=== PATIENT | male | born 1995 | race African-American/Black ===

== ENCOUNTER 2019-07-05 20:33 | Emergency (ER) | payer BC, OTHER ==
[~2019-07-05] VITALS: Ht 190.5 cm; Wt 104.3 kg
--- NOTE | 2019-07-05 20:59 | Emergency Room Report ---
History of Present Illness General Chief Complaint: Dizziness Source: Patient Present Illness [facility] This is a 23-year-old male with no past medical history. He presents with chief complaint of dizziness. Onset for about a week. He said to get it frequently. He said he felt like the room spinning all the time. He said to get every 10 seconds. Somehow was able to drive here without any difficulty. No fever chills but no nausea no vomiting. He said he gets full very easily. Denies any weight loss. No family history of diabetes. Also with chief complaint of lower back pain. This been ongoing for last few days. He said he has to wear heavy belt at work. Is pushing on his lower back and causing pain. No incontinence of bowel or urine. No trauma. No weight loss. No fever chills. Allergies: Coded Allergies: No Known Allergies (Unverified , 07/05/19) Patient History Past Medical History: see triage record, old chart reviewed Past Surgical History: none Pertinent Family History: none Social History: Denies: smoking Immunizations: other Reviewed Nursing Documentation: PMH: Agreed; PSxH: Agreed Nursing Documentation-PMH Past Medical History: No Stated History Review of Systems Eye: Denies: eye pain, blurred vision ENT: Denies: ear pain, nose congestion, throat swelling Respiratory: Denies: cough, shortness of breath Cardiovascular: Denies: chest pain, palpitations Gastrointestinal: Denies: abdominal pain, diarrhea, nausea, vomiting Musculoskeletal: Denies: back pain, joint pain Skin: Denies: rash Neurological: Reports: dizziness; Denies: headache, numbness Endocrine: Denies: increased thirst, increased urine Hematologic/Lymphatic: Denies: easy bruising All Other Systems: negative except mentioned in HPI Physical Exam Vital Signs Date Time Temp Pulse Resp B/P (MAP) Pulse Ox O2 Delivery O2 Flow Rate FiO2 07/05/19 20:46 98.6 85 18 101/68 (79) 96 Room Air Vitals normal Sp02 EP Interpretation: reviewed, normal General Appearance: well appearing, no apparent distress, alert Head: normocephalic, atraumatic Eyes: bilateral eye PERRL, bilateral eye EOMI ENT: hearing grossly normal, normal pharynx Neck: full range of motion, supple, no meningismus Respiratory: chest non-tender, lungs clear, normal breath sounds Cardiovascular #1: regular rate, rhythm, no murmur Gastrointestinal: normal bowel sounds, non tender, no mass, no organomegaly, no bruit, non-distended Musculoskeletal: back normal, gait/station normal, normal range of motion Psychiatric: mood/affect normal Medical Decision Making Diagnostic Impression: Primary Impression: Dizziness of unknown cause Additional Impression: Low back pain Qualified Codes: M54.5 - Low back pain ER Course Patient with dizziness. I see no evidence of TIA or CVA. No neoplastic process. Labs unremarkable. Will discharge home. No evidence of cauda equina syndrome, spinal epidural abscess or neoplastic process. CT/MRI/US Diagnostic Results CT/MRI/US Diagnostic Results : Imaging Test Ordered: CT head Impression Negative per radiologist Last Vital Signs Date Time Temp Pulse Resp B/P (MAP) Pulse Ox O2 Delivery O2 Flow Rate FiO2 07/05/19 20:46 98.6 85 18 101/68 (79) 96 Room Air Status: improved Disposition: HOME, SELF-CARE Condition: Stable Scripts Meclizine Hcl* (MECLIZINE*) 25 Mg Tablet 25 MG ORAL THREE TIMES A DAY, #30 TAB Prov: Shaka Peng MD 07/05/19 Ibuprofen* (MOTRIN*) 600 Mg Tablet 600 MG ORAL THREE TIMES A DAY, #30 TAB 0 Refills Prov: Shaka Peng MD 07/05/19 Patient Instructions: Dizziness Additional Instructions: Follow-up with your doctor in 7 days. Return if worse. Shaka Peng MD Jul 05, 2019 20:59
--- NOTE | 2019-07-05 21:00 | NUR ---
ED Nurse Note: Patient walked in to ER c/o generalized weakness, dizziness, lower back pain. AAO x4, VSS at this time, skin is dry warm to touch.
[2019-07-05 21:13] VITALS: BP 101/68
[2019-07-05 21:53] LABS: APPEARANCE,URINE CLEAR; BILIRUBIN, URINE NEGATIVE (NEGATIVE); GLUCOSE, URINE (UA) NEGATIVE (NEGATIVE); KETONES,URINE NEGATIVE (NEGATIVE); LEUKOCYTE ESTERASE ,URINE NEGATIVE (NEGATIVE); NITRITE,URINE NEGATIVE (NEGATIVE); PH,URINE 5 (4.5-8.0); PROTEIN,URINE NEGATIVE (NEGATIVE); UROBILINOGEN,URINE NORMAL MG/DL (0.0-1.0)
[2019-07-05 21:55] LABS: COLOR,URINE YELLOW
[2019-07-05 21:58] LABS: BASOPHILS % (AUTO) 1.2 % (0.0-2.0); HEMATOCRIT 45.7 % (42.0-52.0); HEMOGLOBIN 15.6 G/DL (14.2-18.0); LYMPHOCYTES % (AUTO) 33.2 % (20.0-45.0); MEAN CORPUSCULAR VOLUME 93 FL (80-99); MONOCYTES % (AUTO) 7.2 % (1.0-10.0); NEUTROPHILS % (AUTO) 56.4 % (45.0-75.0); PLATELET COUNT 331 K/UL (150-450); RED BLOOD COUNT 4.92 M/UL (4.70-6.10); RED CELL DISTRIBUTION WIDTH 10.6 % (11.6-14.8)
[2019-07-05 22:00] LABS: ANION GAP 12 mmol/L (5-15); BLOOD UREA NITROGEN 10 mg/dL (7-18); CALCIUM 9.7 MG/DL (8.5-10.1); CARBON DIOXIDE 28 MMOL/L (21-32); CHLORIDE 104 MMOL/L (98-107); CREATININE 1.1 MG/DL (0.55-1.30); POTASSIUM 3.6 MMOL/L (3.5-5.1); SODIUM 144 MMOL/L (136-145)
[2019-07-05] MEDS ORDERED: MECLIZINE HCL25 MG ORAL (22:40)
[2019-07-05] MEDS ORDERED: IBUPROFEN600 MG ORAL (22:40)
[2019-07-05 22:45] VITALS: BP 101/68
--- NOTE | 2019-07-05 22:46 | NUR ---
ER DISCHARGE NOTE: Patient is cleared to be discharged per ERMD, pt is aox4, on room air, with stable vital signs. pt was given dc and prescription instructions, pt was able to verbalize understanding, pt id band and iv site removed without complications. pt is able to ambulate with steady gait. pt took all belongings.
--- NOTE | 2019-07-06 10:45 | Diagnostic Imaging Report ---
Indications: Vertigo Technique: Spiral acquisitions obtained through the brain. Angled axial and coronal 5 x 5 mm slices were reconstructed. Total dose length product 1424.81 mGycm. CTDI vol(s) 70.38 mGy. Dose reduction achieved using automated exposure control Comparison: None. Findings: No acute intracranial hemorrhage or edema, mass effect, nor midline shift. Normal maguire-white differentiation. Normal size ventricles and extra axial CSF spaces. There is minimal right-sided ethmoid sinus mucosal disease. The visualized orbits are unremarkable. The mastoids are clear. Impression: No acute process Minimal sinus disease This agrees with the preliminary interpretation provided overnight by [facility] teleradiology service. The CT scanner at [facility] is accredited by the [employer] and the scans are performed using protocols designed to limit radiation exposure to as low as reasonably achievable to attain images of sufficient resolution adequate for diagnostic evaluation.
== END 2019-07-05 22:52 | disposition home or self-care (01) ==
LOC: EMR 21:24
DX: R42 Dizziness and giddiness (principal); M54.5 Low back pain
CPT/HCPCS: 36415; 70450; 80048; 81001; 85025; 99284

== ENCOUNTER 2019-08-25 23:36 | Emergency (ER) | payer OTHER, MEDICAID ==
[~2019-08-25] VITALS: Ht 190.5 cm; Wt 108.9 kg
[~2019-08-25 23:36] MED LIST: IBUPROFEN600 MG ORAL; MECLIZINE HCL25 MG ORAL
[2019-08-26] VITALS: BP 110/52
--- NOTE | 2019-08-26 | NUR ---
ED Nurse Note: Patient walked in to ER due to sore throat, dizziness, chill for a few days. Patient is congested. Pt taken OTC theraflu medication @1900 yesterday. Temp 100.9 at ER. Alert, oriented, verbally responisve. no SOB. Breathing even and ulabored. No stated medical history. VSS.
--- NOTE | 2019-08-26 00:50 | Emergency Room Report ---
History of Present Illness General Chief Complaint: Fever Source: Patient Present Illness HPI Disclaimer: Please note that this report is being documented using [employer] technology. This can lead to erroneous entry secondary to incorrect interpretation by the dictating instrument. HPI: 23-year-old male with no reported medical history presents for evaluation of sore throat and fever. Symptoms are present approximately 2 days. He notes a initial sore throat, fatigue, sweats and chills. Denies cough. Noted some loose stools throughout the day and nausea but denies vomiting. No rash. Did not receive a flu shot this year. Overall, feels rundown and sick. PMH: Denies PSH: Denies Allergies: Denies Social Hx: Denies Allergies: Coded Allergies: No Known Allergies (Unverified , 07/05/19) Nursing Documentation-PMH Past Medical History: No Stated History Review of Systems All Other Systems: negative except mentioned in HPI Physical Exam Vital Signs Date Time Temp Pulse Resp B/P (MAP) Pulse Ox O2 Delivery O2 Flow Rate FiO2 08/25/19 23:53 102.7 124 16 106/49 (68) 95 Room Air General: Awake and alert, febrile, appears uncomfortable HEENT: NC/AT. EOMI. PERRLA. Uvula midline. Tonsils 2+. Erythematous pharynx with no exudate. Neck: Supple, trachea midline, no lymphadenopathy Chest Wall: No tenderness, no deformity Cardiovascular: Tachycardic. S1 and S2 normal. No murmur appreciated Resp: Normal work of breathing. No cough, wheezing or crackles appreciated Abdomen: Abdomen is soft, nondistended. Nontender Skin: Intact. No abrasions, laceration or rash over the exposed skin MSK: Normal tone and bulk. Moving all extremities. No obvious deformity. Neuro: Awake and alert. Mentating appropriately. Medical Decision Making Diagnostic Impression: Primary Impression: Febrile illness Additional Impression: Upper respiratory infection ER Course This is a 23-year-old male presenting for evaluation of 2 days URI symptoms as well as diarrhea. Differential includes was not limited to influenza, other viral illness, pneumonia, bronchitis. Patient is tachycardic and febrile. Will give IV fluids, antipyretics, check screening labs and a chest x-ray. If he improves he can go home otherwise may be requiring admission Laboratory Tests Test 08/26/19 00:53 White Blood Count 16.1 K/UL (4.8-10.8) H Red Blood Count 4.79 M/UL (4.70-6.10) Hemoglobin 15.4 G/DL (14.2-18.0) Hematocrit 44.1 % (42.0-52.0) Mean Corpuscular Volume 92 FL (80-99) Mean Corpuscular Hemoglobin 32.2 PG (27.0-31.0) H Mean Corpuscular Hemoglobin Concent 35.0 G/DL (32.0-36.0) Red Cell Distribution Width 10.4 % (11.6-14.8) L Platelet Count 275 K/UL (150-450) Mean Platelet Volume 7.1 FL (6.5-10.1) Neutrophils (%) (Auto) % (45.0-75.0) Lymphocytes (%) (Auto) % (20.0-45.0) Monocytes (%) (Auto) % (1.0-10.0) Eosinophils (%) (Auto) % (0.0-3.0) Basophils (%) (Auto) % (0.0-2.0) Sodium Level 138 MMOL/L (136-145) Potassium Level 3.7 MMOL/L (3.5-5.1) Chloride Level 101 MMOL/L (98-107) Carbon Dioxide Level 27 MMOL/L (21-32) Anion Gap 10 mmol/L (5-15) Blood Urea Nitrogen 15 mg/dL (7-18) Creatinine 1.2 MG/DL (0.55-1.30) Estimate Glomerular Filtration Rate > 60 mL/min (>60) Glucose Level 102 MG/DL (74-106) Calcium Level 9.8 MG/DL (8.5-10.1) Total Bilirubin 0.5 MG/DL (0.2-1.0) Aspartate Amino Transferase (AST) 37 U/L (15-37) Alanine Aminotransferase (ALT) 60 U/L (12-78) Alkaline Phosphatase 67 U/L (46-116) Total Protein 8.6 G/DL (6.4-8.2) H Albumin 4.5 G/DL (3.4-5.0) Globulin 4.1 g/dL Albumin/Globulin Ratio 1.1 (1.0-2.7) Microbiology Date/Time Source Procedure Growth Status 08/26/19 01:08 Nose - Final Complete 08/26/19 01:08 Nose - Final Complete Chest X-Ray Diagnostic Results Chest X-Ray Diagnostic Results : Chest X-Ray Ordered: Yes Indication: Shortness of Breath EP Interpretation: Yes Interpretation: no consolidation, no effusion, no pneumothorax, no acute cardiopulmonary disease Impression: No acute disease Electronically Signed by: Electronically signed by Dr. Rolando Tripp Reevaluation Time: 03:37 Last Vital Signs Date Time Temp Pulse Resp B/P (MAP) Pulse Ox O2 Delivery O2 Flow Rate FiO2 08/26/19 00:00 124 16 Room Air 08/26/19 00:00 100.9 110/52 99 Reevaluation Impression Tachycardia and fever resolved. The patient is feeling better and has his appetite back. He was able to eat and drink in the emergency department. Labs show an elevated white count but otherwise normal blood work. Chest x-ray does not show an obvious infiltrate. Rapid flu's are negative. He will be discharged home to follow-up with his PMD. We will give him a note for work and continue antipyretic medication. Advised to stay hydrated and to return to the emergency department any new or worsening symptoms. He understands and agrees with this treatment plan will be discharged home. Disposition: HOME, SELF-CARE Condition: Improved Scripts Acetaminophen* (ACETAMINOPHEN 325MG TABLET*) 325 Mg Tablet 650 MG ORAL Q6H PRN for fever for 5 Days, #30 TAB Prov: Rolando Tripp MD 08/26/19 Ibuprofen* (MOTRIN*) 600 Mg Tablet 600 MG ORAL Q8H PRN for For Pain, #30 TAB 0 Refills Prov: Rolando Tripp MD 08/26/19 Referrals: [facility],REFERR[facility] (PCP) Rolando Tripp MD Aug 26, 2019 00:50
[2019-08-26] MEDS ORDERED: Acetaminophen 500mg (ES) tab ORAL ONE (01:00)
--- NOTE | 2019-08-26 01:17 | NUR ---
ED Nurse Note: Xray at bedside.
[2019-08-26 01:18] LABS: HEMATOCRIT 44.1 % (42.0-52.0); HEMOGLOBIN 15.4 G/DL (14.2-18.0); MEAN CORPUSCULAR VOLUME 92 FL (80-99); PLATELET COUNT 275 K/UL (150-450); RED BLOOD COUNT 4.79 M/UL (4.70-6.10); RED CELL DISTRIBUTION WIDTH 10.4 % (11.6-14.8); WHITE BLOOD COUNT 16.1 K/UL (4.8-10.8)
[2019-08-26 01:30] LABS: ANION GAP 10 mmol/L (5-15); BLOOD UREA NITROGEN 15 mg/dL (7-18); CALCIUM 9.8 MG/DL (8.5-10.1); CARBON DIOXIDE 27 MMOL/L (21-32); CHLORIDE 101 MMOL/L (98-107); CREATININE 1.2 MG/DL (0.55-1.30); POTASSIUM 3.7 MMOL/L (3.5-5.1); SODIUM 138 MMOL/L (136-145)
[2019-08-26 01:34] LABS: ALANINE AMINOTRANSFERASE 60 U/L (12-78); ALBUMIN 4.5 G/DL (3.4-5.0); ALBUMIN/GLOBULIN RATIO 1.1 (1.0-2.7); ALKALINE PHOSPHATASE 67 U/L (46-116); ASPARTATE AMINO TRANSFERASE 37 U/L (15-37); BILIRUBIN,TOTAL 0.5 MG/DL (0.2-1.0)
[2019-08-26 02:47] VITALS: BP 119/60
--- NOTE | 2019-08-26 02:48 | NUR ---
ED Nurse Note: Pt able to walk to the restroom with steady gait.
[2019-08-26] MEDS ORDERED: IBUPROFEN600 MG ORAL (03:36)
[2019-08-26] MEDS ORDERED: ACETAMINOPHEN325 M1 ORAL (03:36)
[2019-08-26 03:49] VITALS: BP 112/73
--- NOTE | 2019-08-26 03:49 | NUR ---
ED Nurse Note: Pt cleared by ERMD for discharge. DC instructions/prescription was given and explained to pt and verbalized understanding of teachings. All medical devices such as ID band and Iv line removed. Pt is AAO x4, ambulatory and left with all personal belongings.
--- NOTE | 2019-08-26 15:09 | Diagnostic Imaging Report ---
Indication: Shortness of breath Technique: One view of the chest Comparison: none Findings: Lungs and pleural spaces are clear. Heart size is normal. Impression: No acute process
== END 2019-08-26 03:49 | disposition home or self-care (01) ==
LOC: EMR 08-26 00:19
DX: J06.9 Acute upper respiratory infection, unspecified (principal); R50.9 Fever, unspecified; R00.0 Tachycardia, unspecified; R06.02 Shortness of breath
CPT/HCPCS: 36415; 71045; 80053; 85025; 86710; 96360; 96361; 99284; J7030